=== PATIENT | female | born 1970 | race Caucasian/White ===

== ENCOUNTER → 2017-03-05 | Outpatient (CLI) | payer BC ==
[~2017-03-05] MED LIST: None at this Time
== END ==
LOC: STAR 15:05
PROVIDERS: ATTEND Obstetrics & Gynecology Gynecology
DX: Z02.9 Encounter for administrative examinations, unspecified (principal)

== ENCOUNTER 2017-03-20 05:44 | Day surgery (SDC) | payer BC ==
[2017-03-19 08:33] LABS: HEMATOCRIT 45.3 % (34.6-47.8); HEMOGLOBIN 14.8 g/dL (11.7-16.4); WHITE BLOOD COUNT 7.8 x10^3/uL (3.4-10)
[2017-03-19 08:34] LABS: DIFF TOTAL CELLS COUNTED 100 CELL DIFF
[2017-03-19 08:44] LABS: BLOOD UREA NITROGEN 9 mg/dL (7-18)
[2017-03-19 11:26] LABS: VERIFY COUNTS? YES
[~2017-03-20] VITALS: Ht 167.6 cm; Wt 95.0 kg
[2017-03-20] MEDS ORDERED: LACTATED RINGERS 1,000 ML IV SCH (06:06)
[2017-03-20] MEDS ORDERED: LIDOCAINE/PF 1%, 30ML ONE (06:52)
[2017-03-20] MEDS ORDERED: FLUORESCEIN SODIUM 500 MG/5 ML ONE (06:53)
[2017-03-20] MEDS ORDERED: EPINEPHRINE 1 MG/ML, 1ML ONE (06:53)
[2017-03-20] MEDS ORDERED: MIDAZOLAM 1 MG/ML, 2ML ONE (06:59)
[2017-03-20] MEDS ORDERED: FENTANYL PF 100 MCG/2ML ONE ×3 (06:59→09:52)
[2017-03-20] MEDS ORDERED: HYDROmorphone 1 MG/ML, 1ML ONE ×2 (07:00→08:12)
[2017-03-20] MEDS ORDERED: PROPOFOL 10 MG/ML, 20ML ONE ×2 (07:00→08:42)
[2017-03-20] MEDS ORDERED: SUCCINYLCHOLINE 20 MG/ML, 10ML ONE (07:00)
[2017-03-20] MEDS ORDERED: NEOSTIGMINE 1 MG/ML, 10ML ONE (07:00)
[2017-03-20] MEDS ORDERED: DEXAMETHASONE 4 MG/ML, 1ML ONE (07:00)
[2017-03-20] MEDS ORDERED: GLYCOPYRROLATE 0.2MG/1ML, 5ML ONE (07:00)
[2017-03-20] MEDS ORDERED: CEFAZOLIN 1,000 MG ONE (07:00)
[2017-03-20] MEDS ORDERED: ONDANSETRON 2MG/ML, 2ML ONE (07:00)
[2017-03-20] MEDS ORDERED: LIDOCAINE GEL 2%, 5ML ONE (07:05)
[2017-03-20] MEDS ORDERED: ROCURONIUM 10 MG/ML ONE (07:22)
[2017-03-20] MEDS ORDERED: ONDANSETRON 2MG/ML, 2ML IVPush PRN (07:30)
[2017-03-20] MEDS ORDERED: OXYcodone 5 MG/5 ML ORAL.SOL UDC PO PRN (07:30)
[2017-03-20] MEDS ORDERED: HYDROmorphone 1 MG/ML, 1ML IV PRN (07:30)
[2017-03-20] MEDS ORDERED: FENTANYL PF 100 MCG/2ML IV PRN (07:30)
[2017-03-20] MEDS ORDERED: HYDROcodone/APAP 7.5-325MG/15ML UDC PO PRN (07:30)
[2017-03-20] MEDS ORDERED: ACETAMINOPHEN 325 MG TABLET PO PRN (07:30)
[2017-03-20] MEDS ORDERED: PROMETHAZINE 25 MG/ML, 1ML IV PRN (07:30)
[2017-03-20] MEDS ORDERED: EPHEDRINE 50 MG/ML, 1ML ONE (07:58)
[2017-03-20] MEDS ORDERED: PHENYLEPHRINE 10 MG/ML ONE (08:02)
[2017-03-20] MEDS ORDERED: KETOROLAC 30 MG/1 ML ONE (08:55)
[2017-03-20] MEDS ORDERED: ACETAMINOPHEN 650 MG/20.3 ML UDC ONE (09:47)
[2017-03-20] MEDS ORDERED: OXYcodone 5 MG/5 ML ORAL.SOL UDC ONE (09:52)
== END 2017-03-20 15:15 ==
LOC: OUT 05:44
PROVIDERS: ATTEND Obstetrics & Gynecology Gynecology
DX: N92.0 Excessive and frequent menstruation with regular cycle (principal); D25.9 Leiomyoma of uterus, unspecified; Z88.0 Allergy status to penicillin
CPT/HCPCS: 36415; 58263; 80048; 81003; 84703; 85014; 85025; 88307; J0171; J0330; J0690; J1100; J1170; J1885; J2250; J2370; J2405; J2704; J2710; J3010; J3490; J7120